=== PATIENT | male | born 1955 | race Caucasian/White ===

== ENCOUNTER → 2016-11-23 | Outpatient (CLI) | payer BC ==
--- NOTE | 2016-11-23 14:56 | KCIC ---
PROCEDURE Lumbar spine MRI without contrast. HISTORY Lower back pain. Right lower extremity radiculopathy. TECHNIQUE Multiplanar and multi sequence magnetic resonance imaging of the lumbar spine was performed without contrast. COMPARISON None. FINDINGS There is minimal retrolisthesis of L2 on L3. The vertebral bodies are normal in height and demonstrate normal marrow signal intensity. There is desiccation of the mid lower intervertebral discs. The conus terminates at L1. There is T2 hyperintensity within the left L5 pedicle, possibly due to a stress reaction. There is a tiny left renal cortical cyst. At L1-L2, there is a disc bulge and anterior endplate remodeling. There is no stenosis. At L2-L3, there is a minimal disc bulge and anterior endplate remodeling. There is minimal facet arthropathy. There is no stenosis. At L3-L4, there is a minimal disc bulge and anterior endplate remodeling. There is minimal facet arthropathy. There is minimal bilateral foraminal stenosis. At L4-L5, there is a posterior central annular tear superimposed on a disc bulge and endplate remodeling. There is mild left greater than right facet arthropathy. There is no stenosis. At L5-S1, there is a minimal posterior central disc protrusion and annular tear superimposed on a disc bulge and endplate remodeling. There is no stenosis. IMPRESSION 1. Mild degenerative change within the lumbar spine, described in detail above. 2. Edema within the left L5 pedicle, possibly due to a stress reaction. Electronically signed by: Yessica Pierre (Nov 23, 2016 14:55:30)
== END | disposition home or self-care (01) ==
LOC: KCIC MRI 14:08
PROVIDERS: ATTEND Physician Assistant Medical
DX: M47.896 Other spondylosis, lumbar region (principal)
CPT/HCPCS: 72148

== ENCOUNTER 2019-09-15 07:54 | Day surgery (SDC) | payer BC ==
[~2019-09-15] VITALS: Ht 175.3 cm; Wt 100.5 kg
[~2019-09-15 07:54] MED LIST: ACETAMINOPHEN 500 MG TABLET PO ONE; HYDROmorphone 2 MG/ML VIAL IV PRN; IV RINGERS,LACTATED 1000ML 1,000 ML IV SCH; LIDOCAINE 1% PF 2 ML VIAL. ID PRN; LOSA1TAB25 PO; MORPHINE SULFATE 2 MG/ML VIAL. IV PRN; ONDANSETRON PF 4 MG/2 ML VIAL. IV PRN; PROCHLORPERAZINE 10 MG/2 ML VIAL. IV PRN; fentaNYL PF VIAL 100 MCG/2 ML VIAL IV PRN
[2019-09-15] MEDS ORDERED: ONDANSETRON PF 4 MG/2 ML VIAL. ONE (08:48)
[2019-09-15] MEDS ORDERED: PROPOFOL 20 ML IV ONE (08:48)
[2019-09-15] MEDS ORDERED: LIDOCAINE 2% PF 5 ML VIAL. ONE (08:48)
[2019-09-15] MEDS ORDERED: DEXAMETHASONE SOD PHOS 4 MG/ML VIAL ONE (08:48)
[2019-09-15] MEDS ORDERED: ROCURONIUM 50 MG/5 ML VIAL. ONE (08:48)
[2019-09-15] MEDS ORDERED: fentaNYL PF VIAL 100 MCG/2 ML VIAL ONE (08:48)
[2019-09-15] MEDS ORDERED: MIDAZOLAM HCL/PF 2 MG/2 ML VIAL. ONE (08:50)
[2019-09-15] MEDS ORDERED: BUPIVACAINE-EPI 0.25%-1:200000 MPF 30 ML VIAL. ONE (09:17)
[2019-09-15] MEDS ORDERED: SUCCINYLCHOLINE 200 MG/10 ML VIAL. ONE (09:32)
[2019-09-15] MEDS ORDERED: ePHEDrine PF IN SALINE 50 MG/10 ML SYRINGE. IV ONE (09:54)
[2019-09-15] MEDS ORDERED: NEOSTIGMINE METHYLSULFATE 5 MG/5 ML SYRINGE. ONE (10:05)
[2019-09-15] MEDS ORDERED: GLYCOPYRROLATE 1 MG/5 ML VIAL. ONE (10:05)
[2019-09-15] MEDS ORDERED: PHENYLEPHRINE in 0.9% NACL PF 1 MG/10 ML SYRINGE. IV ONE (10:05)
[2019-09-15] MEDS ORDERED: SEVOFLURANE 31 TO 60 MINUTES. IH ONE (10:13)
--- NOTE | 2019-09-15 10:15 | PDOC4 ---
Operative Note Operative Note Date: 09/15/2019 Preoperative diagnosis: Pilonidal cyst Postoperative diagnosis: Same Procedure: Pilonidal cystectomy Surgeon: Lalito Specimen: Pilonidal cyst and skin Dictation: Patient is a 64-year-old male is complained of a draining wound on his buttocks in the midline. Procedure of pilonidal cystectomy was explained to the patient detail risk benefits were also discussed including bleeding infection alternatives to this procedure also discussed with patient who seemed to understand and gave both verbal and written consent had the procedure performed. Patient was taken to the operating room placed in supine position general anesthesia was initiated once patient was sleep and intubated is then r epositioned in the prone positioning and his buttocks was prepped and draped usual sterile fashion using Betadine scrub and solution. An area around the pilonidal cyst in the midline was injected with quarter percent Marcaine with epinephrine incision was made in elliptical fashion with a 15 blade scalpel was carried down through the subcutaneous tissue using electrocautery divided hemostasis down to the external fascia. The area excised proximally 6 cm x 4 cm. Wound was then closed in 3 layers a deep layer running 0 Vicryl a more superficial layer with a 3-0 running Vicryl and then the skin was reapproximated with 3-0 nylon horizontal mattress sutures. Once this was complete the wound was dressed with 4 x 4's and mesh panties patient was repositioned in the prone positioning awakened and extubated in the operating room taken to recovery in stable condition all sponge instrument needle counts listed as correct estimated blood loss 10 mL WINSTON RIBEIRO MD Sep 15, 2019 10:15
--- NOTE | 2019-09-15 10:17 | DISCH ---
DISCHARGE INSTRUCTIONS Condition on Discharge Condition on Discharge: Stable Activity After Discharge Activity Instructions for Disc: Avoid exertion Other activity instructions: no physical straining for 2 weeks Diet after Discharge Diet after Discharge: Regular Wound Incision Care Other wound/incision instructi: shower in 24 hours Contacting the after DC Call your doctor for: If your condition worsens Follow-Up Follow up with: Dr. Ribeiro in 2 weeks WINSTON RIBEIRO MD Sep 15, 2019 10:16
[2019-09-15] MEDS ORDERED: OXYC-325 PO (10:49)
[2019-09-15] MEDS ORDERED: oxyCODONE/APAP 5/325 1 TAB TABLET PO ONE ×2 (11:00)
[2019-09-15 11:16] VITALS: BP 157/46
--- NOTE | 2019-09-18 15:07 | PATHOLOGY ---
[facility] Accession Number: [id number] . 01 Material submitted: . buttock - PILONIDAL CYST . 01 Clinical history: . Pilonidal cyst . 02 Diagnosis: Skin and subcutaneous tissue, pilonidal cystectomy: - Pilonidal sinus focally lined by acute and chronically inflamed granulation tissue and by keratinizing squamous epithelium, with surrounding scarring and chronic inflammation. . (JPM:teto; 09/18/2019) S 09/18/2019 1449 Local . 02 Comment: There is no evidence of malignancy. (JPM:teto; 09/18/2019) . 02 Electronically signed: . Jesus Eastman MD, Pathologist NPI- [id number] . 01 Gross description: . The specimen is received in formalin, labeled "Cornelius Barrientos, pilonidal cyst". Received is an excision of skin with attached underlying soft tissue 4.8 x 1.5 x 3.2 cm in greatest dimensions. The epidermal surface displays a well-circumscribed, irregular in contour and pink-euceda lesion measuring 1.0 x 0.7 cm. There is also a linear furrow present measuring 4.1 cm in length. Sectioning reveals a small sinus tract measuring 0.8 cm in length by up to 0.3 cm in diameter immediately underlying the lesion, that is devoid of content. The specimen is submitted representatively in cassette A1. (CAA; 09/15/2019) QAC/QAC 09/18/2019 1255 Local . 02 Pathologist provided ICD-10: L90.5, L98.9 . 02 CPT . 966777 Specimen Comment: A courtesy copy of this report has been sent to [phone], [phone] Specimen Comment: [id number] Specimen Comment: Report sent to and Performed at: [address] [facility] [address], [place], [place] [id number] MD Hguo Ferguson MD Phone: [phone] Performed at: 02 [facility] [address] [place], [place] [id number] MD Jesus Eastman MD Phone: [phone]
== END 2019-09-15 11:42 | disposition home or self-care (01) ==
LOC: SURG 07:54
PROVIDERS: ATTEND Surgery
DX: L05.91 Pilonidal cyst without abscess (principal); I10 Essential (primary) hypertension; E66.9 Obesity, unspecified; Z68.32 Body mass index [BMI] 32.0-32.9, adult; Z98.890 Other specified postprocedural states; Z87.891 Personal history of nicotine dependence; Z85.828 Personal history of other malignant neoplasm of skin
CPT/HCPCS: 11771; A7015; J0330; J0696; J1100; J2001; J2250; J2370; J2405; J2704; J2710; J3010; J3490; J0171; A4461